=== PATIENT | female | born 1990 | race African-American/Black ===

== ENCOUNTER 2022-01-12 19:07 | Emergency (ER) | payer OTHER ==
[2022-01-12 19:15] VITALS: BP 118/79; PULSE 75; TEMP 97; BMI 31.4
[2022-01-12 22:03] LABS: EPI CELLS >36 /uL (0-25.1); HYALINE CASTS 2 /uL (0-3.1); PH,URINE 6.5 (5.0-8.0); URINE APPEARANCE CLOUDY; URINE BILIRUBIN NEGATIVE (NEGATIVE); URINE COLOR YELLOW; URINE GLUCOSE (UA) NEGATIVE (NEGATIVE); URINE KETONE TRACE (NEGATIVE); URINE LEUK ESTERASE TRACE (NEGATIVE); URINE NITRITE NEGATIVE (NEGATIVE); URINE PROTEIN TRACE (NEGATIVE); URINE RBC 3092 /uL (0-23.9); URINE WBC 36 /uL (0-25.8)
[2022-01-12 23:10] LABS: HCG,QUALITATIVE URINE Negative
== END 2022-01-12 23:19 | disposition home or self-care (01) ==
LOC: JER 19:07 → JERFT 19:07 → JER 23:19
DX: N94.819 Vulvodynia, unspecified (principal)
CPT/HCPCS: 36415; 81003; 84703; 87086; 87491; 87591; 99284-25